=== PATIENT | male | born 1950 | race Caucasian/White ===

== ENCOUNTER 2016-11-11 09:50 | Observation (INO) | payer BC ==
[~2016-11-11 09:50] MED LIST: CANA300T PO; CIPR750T10 PO; ETHA400T PO
[2016-11-11 09:52] VITALS: BP 163/70; PULSE 52; RESP 20; TEMP 97.5; O2SAT 95
[2016-11-11 10:15] VITALS: BP 181/71; PULSE 54; RESP 16; O2SAT 100; O2SAT 97
[2016-11-11] MEDS ORDERED: ASPIRIN 325 MG TAB PO ONE (10:15)
[2016-11-11] MEDS ORDERED: SODIUM CHLORIDE 0.9% FLUSH 5 ML FLUSH IVF PRN (10:15)
--- NOTE | 2016-11-11 10:20 | PD ---
HPI Chief Complaint: Chest Pain Time Seen by Provider: 09:59 Travel History International Travel<30 days: No (unknown) Contact w/Intl Traveler<30days: No (unknown) History of Present Illness HPI 66yo M with PMH of NIDDM presents to the ED with c/o left sided chest pain for an hour. States chest pain is sharp, constant, nonradiating. No alleviating or aggravating factors. Denies any fever, sob, nausea, vomiting, diaphoresis or hemoptysis. Pt has been coughing more lately. Pt states he had this chest pain intermittently for 3 months and went to PMD but has not gotten referral for cardiology or had any cardiology work up for this chest pain. Pt also with cholelithiasis and intermittent RUQ abdominal pain. States this episode started when he woke up this morning. PFSH Past Medical History Cancer: No Cardiovascular Problems: No Chest Pain: No Diabetes: Yes Patient Takes Glucophage: No Diminished Hearing: No Endocrine: Yes Gastrointestinal Disorders: Yes (GALLSTONES) Genitourinary: Yes Immune Disorder: No Musculoskeletal: No Neurologic: No Psychiatric: No Reproductive: No Respiratory: No Immunizations Current: Yes Pneumonia: Yes (10/01/11) Tetanus Vaccination: Unknown Influenza Vaccination: No Past Surgical History Abdominal Surgery: No Cardiac Surgery: No Ear Surgery: No Endocrine Surgery: No Eye Surgery: No Genitourinary Surgery: No Oral Surgery: No Pacemaker: No Thoracic Surgery: No Social History Alcohol Use: No Tobacco Use: No Substance Use: No Allergies-Medications (Allergen,Severity, Reaction): Coded Allergies: *MDRO Multi-Drug Resistant Organism (Verified Allergy, Unknown, 02/28/14) MRSA Urine, blood, and wound 11/2012 Reported Meds & Prescriptions Reported Meds & Active Scripts Active Review of Systems Except as stated in HPI: all other systems reviewed are Neg Physical Exam Narrative GENERAL: 66yo M not in distress. SKIN: Warm and dry. HEAD: Atraumatic. Normocephalic. ENT: No nasal bleeding or discharge. Mucous membranes pink and moist. NECK: Trachea midline. No JVD. CARDIOVASCULAR: Sinus bradycardia on monitor at 50bpm. No murmur appreciated. RESPIRATORY: No accessory muscle use. Clear to auscultation. Breath sounds equal bilaterally. GASTROINTESTINAL: Abdomen soft, +TTP Epigastric and RLQ > RUQ. No rebound tenderness or guarding. BACK: No CVA tenderness bilaterally. MUSCULOSKELETAL: No obvious deformities. No clubbing. No cyanosis. No edema. No calf tenderness. NEUROLOGICAL: Awake and alert. No obvious cranial nerve deficits. Motor grossly within normal limits. Normal speech. PSYCHIATRIC: Appropriate mood and affect; insight and judgment normal. Data Data Last Documented VS Vital Signs Date Time Temp Pulse Resp B/P Pulse Ox O2 Delivery O2 Flow Rate FiO2 11/11/16 10:15 16 97 Room Air 11/11/16 10:15 54 181/71 2 11/11/16 09:52 97.5 Orders Electrocardiogram (11/11/16 ) Ckmb (Isoenzyme) Profile (11/11/16 10:13) Complete Blood Count With Diff (11/11/16 10:13) Comprehensive Metabolic Panel (11/11/16 10:13) Magnesium (Mg) (11/11/16 10:13) Prothrombin Time / Inr (Pt) (11/11/16 10:13) Act Partial Throm Time (Ptt) (11/11/16 10:13) Troponin I (11/11/16 10:13) Lipase (11/11/16 10:13) Chest, Single Ap (11/11/16 10:13) Ecg Monitoring (11/11/16 10:13) Bilateral Bp Monitoring (11/11/16 10:13) Iv Access Insert/Monitor (11/11/16 10:13) Oximetry (11/11/16 10:13) Aspirin (Aspirin) (11/11/16 10:15) Sodium Chloride 0.9% Flush (Ns Flush) (11/11/16 10:15) Ct Abd/Pel W Iv Contrast(Rout) (11/11/16 ) Urinalysis - C+S If Indicated (11/11/16 10:20) CKMB (11/11/16 10:15) CKMB% (11/11/16 10:15) Admit Order (Ed Use Only) (11/11/16 12:35) Labs Laboratory Tests Test 11/11/16 11/11/16 10:15 11:05 White Blood Count 4.6 TH/MM3 Red Blood Count 4.28 MIL/MM3 Hemoglobin 13.6 GM/DL Hematocrit 38.9 % Mean Corpuscular Volume 90.8 FL Mean Corpuscular Hemoglobin 31.7 PG Mean Corpuscular Hemoglobin 34.9 % Concent Red Cell Distribution Width 13.1 % Platelet Count 165 TH/MM3 Mean Platelet Volume 8.4 FL Neutrophils (%) (Auto) 49.8 % Lymphocytes (%) (Auto) 35.4 % Monocytes (%) (Auto) 10.7 % Eosinophils (%) (Auto) 3.6 % Basophils (%) (Auto) 0.5 % Neutrophils # (Auto) 2.3 TH/MM3 Lymphocytes # (Auto) 1.6 TH/MM3 Monocytes # (Auto) 0.5 TH/MM3 Eosinophils # (Auto) 0.2 TH/MM3 Basophils # (Auto) 0.0 TH/MM3 CBC Comment DIFF FINAL Differential Comment Prothrombin Time 10.8 SEC Prothromb Time International 1.0 RATIO Ratio Activated Partial 28.0 SEC Thromboplast Time Sodium Level 139 MEQ/L Potassium Level 4.0 MEQ/L Chloride Level 104 MEQ/L Carbon Dioxide Level 26.8 MEQ/L Anion Gap 8 MEQ/L Blood Urea Nitrogen 19 MG/DL Creatinine 1.01 MG/DL Estimat Glomerular Filtration 73 ML/MIN Rate Random Glucose 128 MG/DL Calcium Level 8.6 MG/DL Magnesium Level 2.2 MG/DL Total Bilirubin 0.5 MG/DL Aspartate Amino Transf 33 U/L (AST/SGOT) Alanine Aminotransferase 42 U/L (ALT/SGPT) Alkaline Phosphatase 129 U/L Total Creatine Kinase 361 U/L Creatine Kinase MB 11.5 NG/ML Creatine Kinase MB % 3.2 % Troponin I LESS THAN 0.02 NG/ML Total Protein 8.1 GM/DL Albumin 3.9 GM/DL Lipase 112 U/L Urine Color YELLOW Urine Turbidity CLEAR Urine pH 7.5 Urine Specific [place] 1.015 Urine Protein NEG mg/dL Urine Glucose (UA) NEG mg/dL Urine Ketones NEG mg/dL Urine Occult Blood NEG Urine Nitrite NEG Urine Bilirubin NEG Urine Urobilinogen LESS THAN 2.0 MG/DL Urine Leukocyte Esterase NEG Urine RBC 1 /hpf Urine WBC LESS THAN 1 /hpf Microscopic Urinalysis Comment CULT NOT INDICATED MDM Medical Decision Making Medical Screen Exam Complete: Yes Emergency Medical Condition: Yes Interpretation(s) EKG: Sinus bradycardia at 49bpm. Normal axis. Laboratory Tests Test 11/11/16 11/11/16 10:15 11:05 White Blood Count 4.6 TH/MM3 (4.0-11.0) Red Blood Count 4.28 MIL/MM3 (4.50-5.90) Hemoglobin 13.6 GM/DL (13.0-17.0) Hematocrit 38.9 % (39.0-51.0) Mean Corpuscular Volume 90.8 FL (80.0-100.0) Mean Corpuscular Hemoglobin 31.7 PG (27.0-34.0) Mean Corpuscular Hemoglobin 34.9 % Concent (32.0-36.0) Red Cell Distribution Width 13.1 % (11.6-17.2) Platelet Count 165 TH/MM3 (150-450) Mean Platelet Volume 8.4 FL (7.0-11.0) Neutrophils (%) (Auto) 49.8 % (16.0-70.0) Lymphocytes (%) (Auto) 35.4 % (9.0-44.0) Monocytes (%) (Auto) 10.7 % (0.0-8.0) Eosinophils (%) (Auto) 3.6 % (0.0-4.0) Basophils (%) (Auto) 0.5 % (0.0-2.0) Neutrophils # (Auto) 2.3 TH/MM3 (1.8-7.7) Lymphocytes # (Auto) 1.6 TH/MM3 (1.0-4.8) Monocytes # (Auto) 0.5 TH/MM3 (0-0.9) Eosinophils # (Auto) 0.2 TH/MM3 (0-0.4) Basophils # (Auto) 0.0 TH/MM3 (0-0.2) CBC Comment DIFF FINAL Differential Comment Prothrombin Time 10.8 SEC (9.8-11.6) Prothromb Time International 1.0 RATIO Ratio Activated Partial 28.0 SEC Thromboplast Time (24.3-30.1) Sodium Level 139 MEQ/L (136-145) Potassium Level 4.0 MEQ/L (3.5-5.1) Chloride Level 104 MEQ/L (98-107) Carbon Dioxide Level 26.8 MEQ/L (21.0-32.0) Anion Gap 8 MEQ/L (5-15) Blood Urea Nitrogen 19 MG/DL (7-18) Creatinine 1.01 MG/DL (0.60-1.30) Estimat Glomerular Filtration 73 ML/MIN (>89) Rate Random Glucose 128 MG/DL (74-106) Calcium Level 8.6 MG/DL (8.5-10.1) Magnesium Level 2.2 MG/DL (1.5-2.5) Total Bilirubin 0.5 MG/DL (0.2-1.0) Aspartate Amino Transf 33 U/L (15-37) (AST/SGOT) Alanine Aminotransferase 42 U/L (12-78) (ALT/SGPT) Alkaline Phosphatase 129 U/L (45-117) Total Creatine Kinase 361 U/L (39-308) Creatine Kinase MB 11.5 NG/ML (0.5-3.6) Creatine Kinase MB % 3.2 % (0.0-4.0) Troponin I LESS THAN 0.02 NG/ML (0.02-0.05) Total Protein 8.1 GM/DL (6.4-8.2) Albumin 3.9 GM/DL (3.4-5.0) Lipase 112 U/L (73-393) Urine Color YELLOW (YELLW/STRAW) Urine Turbidity CLEAR (CLEAR) Urine pH 7.5 (5.0-8.5) Urine Specific [place] 1.015 (1.002-1.035) Urine Protein NEG mg/dL (NEG-TRACE) Urine Glucose (UA) NEG mg/dL (NEG) Urine Ketones NEG mg/dL (NEG) Urine Occult Blood NEG (NEG) Urine Nitrite NEG (NEG) Urine Bilirubin NEG (NEG) Urine Urobilinogen LESS THAN 2.0 MG/DL (LESS THAN 2.0) Urine Leukocyte Esterase NEG (NEG) Urine RBC 1 /hpf (0-3) Urine WBC LESS THAN 1 /hpf (0-5) Microscopic Urinalysis Comment CULT NOT INDICATED Last Impressions Chest X-Ray 11/11/16 1013 Signed Impressions: Service Date/Time: Friday, November 11, 2016 10:21 - CONCLUSION: No acute disease. Dionicio Farr MD Abdomen/Pelvis CT 11/11/16 0000 Signed Impressions: Service Date/Time: Friday, November 11, 2016 12:33 - CONCLUSION: 1. No acute inflammatory process. 2. Questionable gallstones. Dionicio Farr MD Differential Diagnosis Atypical chest pain vs. Pneumonia vs. ACS Acute cholecystitis vs. acute appendicitis vs. acute pancreatitis vs. colitis vs. UTI Narrative Course 66yo M with DM here with atypical presenting chest pain. Pt has been having intermittent episodes of chest pain and has not had any cardiology follow up for this chest pain. Pt is a former cigarette smoker. Our records showed that pt had AIDEN in 2012 that was normal. Pt given aspirin 325mg PO. Labs reviewed, no leukocytosis. Troponin negative. Lipase normal. Alk phos mildly elevated. Normal liver enzyme and bilirubin. UA negative. CXR negative. CTa/p showed no acute inflammatory process. Questionable gallstones. Pt to be admitted for serial EKG and cardiac enzyme in chest pain center. Diagnosis Primary Impression: CHEST PAIN, UNSPECIFIED Admitting Information Admitting Physician Requests: Marybeth Green DO Nov 11, 2016 10:20
[2016-11-11 10:40] LABS: AUTOMATED NEUTROPHIL # 2.3 TH/MM3 (1.8-7.7); BASOPHIL % 0.5 % (0.0-2.0); EOSINOPHIL # 0.2 TH/MM3 (0-0.4); EOSINOPHIL % 3.6 % (0.0-4.0); HEMATOCRIT 38.9 % (39.0-51.0); HEMO FLAGS DIFF FINAL; LYMPH % 35.4 % (9.0-44.0); LYMPHOCYTE # 1.6 TH/MM3 (1.0-4.8); MEAN CELL VOLUME 90.8 FL (80.0-100.0); MEAN CORPUSCULAR HEMOGLOBIN 31.7 PG (27.0-34.0); MEAN CORPUSCULAR HGB CONC 34.9 % (32.0-36.0); MONO % 10.7 % (0.0-8.0); NEUT % 49.8 % (16.0-70.0); PLATELET COUNT 165 TH/MM3 (150-450); RED BLOOD COUNT 4.28 MIL/MM3 (4.50-5.90); RED CELL DISTRIBUTION WIDTH 13.1 % (11.6-17.2); WHITE BLOOD COUNT 4.6 TH/MM3 (4.0-11.0)
--- NOTE | 2016-11-11 10:43 | RADRPT ---
EXAM DATE/TIME: 11/11/2016 10:21 [facility] COMPARISON: CHEST SINGLE AP, April 15, 2014, 0:11. INDICATIONS : Chest pain. MEDICAL HISTORY : None. SURGICAL HISTORY : None. ENCOUNTER: Initial ACUITY: 1 day PAIN SCORE: 7/10 LOCATION: Bilateral chest FINDINGS: A single view of the chest demonstrates the lungs to be symmetrically aerated without evidence of mas s, infiltrate or effusion. Bilateral calcified granulomas. The cardiomediastinal contours are unrema rkable. Osseous structures are intact. CONCLUSION: No acute disease. Dionicio Farr MD on November 11, 2016 at 10:41 Board Certified Radiologist. This report was verified electronically.
[2016-11-11 10:50] LABS: PROTHROMBIN TIME - PATIENT 10.8 SEC (9.8-11.6)
[2016-11-11 10:54] LABS: ANION GAP 8 MEQ/L (5-15); AST (GOT) 33 U/L (15-37); BICARBONATE 26.8 MEQ/L (21.0-32.0); BLOOD UREA NITROGEN 19 MG/DL (7-18); CHLORIDE 104 MEQ/L (98-107); GLOMERULAR FILTRATION RATE 73 ML/MIN (>89); MAGNESIUM 2.2 MG/DL (1.5-2.5); SODIUM (NA) 139 MEQ/L (136-145)
[2016-11-11 10:59] LABS: ALKALINE PHOSPHATASE 129 U/L (45-117); ALT (GPT) 42 U/L (12-78); CREATINE KINASE 361 U/L (39-308); TOTAL BILIRUBIN ADULT 0.5 MG/DL (0.2-1.0)
[2016-11-11 11:11] LABS: CKMB 11.5 NG/ML (0.5-3.6)
[2016-11-11 11:31] LABS: BLOOD, URINE NEG (NEG); GLUCOSE,URINE NEG (NEG); KETONE, URINE NEG (NEG); NITRITE,URINE NEG (NEG); PH, URINE 7.5 (5.0-8.5); URINE COLOR YELLOW (YELLW/STRAW)
[2016-11-11 11:32] LABS: COMMENT (UR) CULT NOT INDICATED; CULTURE IF INDICATED CULT NOT INDICATED
[2016-11-11] MEDS ORDERED: ONDANSETRON HCL 4 MG/2 ML VIAL IV PRN (13:00)
[2016-11-11] MEDS ORDERED: NITROGLYCERIN 0.4 MG SL 25 TABS/BTL SL PRN (13:00)
[2016-11-11] MEDS ORDERED: ACETAMINOPHEN 500 MG CPLT PO PRN (13:00)
[2016-11-11] MEDS ORDERED: IOHEXOL 350 MG/ML 10 ML VIAL (for RAD DIAG) IV ONE (13:16)
--- NOTE | 2016-11-11 13:24 | RADRPT ---
EXAM DATE/TIME: 11/11/2016 12:33 [facility] COMPARISON: CT ABDOMEN & PELVIS W/O CONTRAST, December 01, 2012, 23:09. INDICATIONS : Abdomen pain. IV CONTRAST: 100 cc Omnipaque 350 (iohexol) IV ORAL CONTRAST: No oral contrast ingested. RADIATION DOSE: 9.96 CTDIvol (mGy) MEDICAL HISTORY : TB. SURGICAL HISTORY : None. ENCOUNTER: Initial ACUITY: 1 day PAIN SCALE: 5/10 LOCATION: Right upper quadrant TECHNIQUE: Volumetric scanning of the abdomen and pelvis was performed. Using automated exposure control and ad justment of the mA and/or kV according to patient size, radiation dose was kept as low as reasonably achievable to obtain optimal diagnostic quality images. FINDINGS: LOWER LUNGS: The visualized lower lungs are clear. LIVER: Homogeneous density without lesion. There is no dilation of the biliary tree. Questionable gallstone s. SPLEEN: Normal size without lesion. PANCREAS: Within normal limits. KIDNEYS: Normal in size and shape. There is no mass, stone or hydronephrosis. ADRENAL GLANDS: Within normal limits. VASCULAR: There is no aortic aneurysm. BOWEL/MESENTERY: The stomach, small bowel, and colon demonstrate no acute abnormality. There is no free intraperitone al air or fluid. ABDOMINAL WALL: Within normal limits. RETROPERITONEUM: There is no lymphadenopathy. BLADDER: No wall thickening or mass. REPRODUCTIVE: Within normal limits. INGUINAL: There is no lymphadenopathy or hernia. MUSCULOSKELETAL: Within normal limits for patient age. CONCLUSION: 1. No acute inflammatory process. 2. Questionable gallstones. Dionicio Farr MD on November 11, 2016 at 13:21 Board Certified Radiologist. This report was verified electronically.
--- NOTE | 2016-11-11 14:58 | HHI.DCPOC ---
Discharge Care Plan Diagnosis: (1) Musculoskeletal chest pain Goals to Promote Your Health * To prevent worsening of your condition and complications * To maintain your health at the optimal level Directions to Meet Your Goals Take your medications as prescribed Follow your dietary instruction Follow activity as directed Keep your appointments as scheduled Take your immunizations and boosters as scheduled If your symptoms worsen call your PCP, if no PCP go to Urgent Care Center or Emergency Room Smoking is Dangerous to Your Health. Avoid second hand smoke Call the 24-hour hour crisis hotline for domestic abuse at Luly Thibodeaux Nov 11, 2016 14:58
--- NOTE | 2016-11-11 15:01 | TR ---
Date Performed: 11/11/2016 Time Performed: 14:29:26 DOCTOR: Gianfranco Eller DRUG LIST: CLINICAL HISTORY: REASON FOR TEST: Chest pain REASON FOR ENDING: OBSERVATION: CONCLUSION: Chas protocol completed. Stopped sec to reaching target heart rate and leg fatigue. Maximum QO=803 Target HR Achieved=86.0% Total Exercise Time=9:01 Maximum CY=251/52. No reprod chest discomfort. No ectopy. No st t segment changes to sugg ischemia. Normal bp response. Recovery quick and unremarkable. COMMENTS: Conclusion: Normal treadmill exercise. No evidence of ischemia.
--- NOTE | 2016-11-11 15:58 | HHI.HP ---
[facility] Primary Care Physician Sander Mas MD Chief Complaint Chest pain and abdominal pain History of Present Illness 66-year-old male with known diabetes presents to the emergency room for further evaluation of intermittent chest pain. He has seen his primary care provider in regards to sharp chest pain in his left anterior chest that is accompanied by tightness. Precipitating factors of activity such as shoveling. He works for a local [employer] company. His primary care provider has not given him with a referral for cardiology workup, therefore he came for further evaluation. No associated symptoms. No relieving factors. Pain is not made worse with taking deep breaths, or movement. He also experiences nonexertional chest pain described as a "pinching feeling." In regards to his abdominal discomfort, he has seen a GI specialist recently and was told he did not require surgery/ intervention for his gallbladder. He continues to have GI discomfort. States 2 days ago he increased diabetic medication as directed by his primary care M.D. He is on sure the name of the medication. Review of Systems General: No fatigue,weakness or recent illness change in appetite HEENT: no nasal congestion or drainage, no dysphasia CV: CP as stated above, denies pressure, palpitations, intermittent leg pain, or dizziness RESP: No SOB, cough, wheeze. 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 Follows on a yearly basis with a sputum culture with M.D. GI: Has been told he has gallbladder stones however does not require surgery or intervention. Noticed an increase in generalized GI discomfort after increasing his diabetic medication. No nausea or vomiting, bowel changes, diarrhea, constipation, distention. Reports good appetite. : No dysuria EXT: No lower leg edema, no parathesias MS: No discomfort or change in ROM NEURO: No change in memory, dizziness, difficulty with balance, LOC, motor/ sensory deficits PSYCH: No anxiety, depression Past Family Social History Allergies: Coded Allergies: *MDRO Multi-Drug Resistant Organism (Verified Allergy, Unknown, 02/28/14) MRSA Urine, blood, and wound 11/2012 Past Medical History Diabetes Cholelithiasis Tuberculosis in 2013, cured with meds Past Surgical History Right shoulder "bone scraping to remove MRSA" Reported Medications Diabetic medicationname unknown. Recently increased to 2 tablets daily versus 1 tablet daily. No other routine vitamins,prescription medications, or [id number] medications. Active Ordered Medications Current Medications Medications (Trade) Dose Ordered Sig/Matheus Route Start Time Stop Time Status Last Admin (Tylenol) 500 mg Q4H PRN PO 11/11/16 13:00 (Zofran Inj) 4 mg Q6H PRN IV 11/11/16 13:00 (Nitrostat Sl) 0.4 mg Q5M PRN SL 11/11/16 13:00 (Aspirin) 325 mg DAILY PO 11/12/16 09:00 Family History Noncontributory for any early onset cardiovascular disease. Father lived until age 80, mother lived until age 85. Social History He is , active, and works at a [employer]. He is a lifelong nonsmoker, denies any alcohol, or illegal drug use. No known hypertension or hyperlipidemia. Reports diabetes, takes oral anti- glycemic medication. Physical Exam Vital Signs Vital Signs Date Time Temp Pulse Resp B/P Pulse Ox O2 Delivery O2 Flow Rate FiO2 11/11/16 10:15 16 97 Room Air 11/11/16 10:15 54 16 181/71 100 Nasal Cannula 2 11/11/16 10:00 16 97 Nasal Cannula 2 11/11/16 09:52 97.5 52 20 163/70 95 Room Air Physical Exam GENERAL: Alert WN, WD, NAD, pleasant male. HEAD: NC, AT EYES: Sclera clear, conjunctiva without injection ENT: Mucous membranes pink and moist NECK: Supple, no masses, trachea midline CV: RRR, without murmur, rub, gallop, no JVD, S1-S2 no S3-S4. No carotid or femoral bruits RESP: Clear lungs throughout bilateral, no crackles, wheeze, rhonchi, symmetrical chest rise, nonlabored, able to speak in full sentences ABD: Soft, NT, ND, no masses, positive bowel tones. Negative Bui's sign. EXT: Pulses +24, no dependent edema MS: Normal tone 4 extremities, nontender, no obvious deformities, full range of motion NEURO: CN II through CN XII grossly intact, motor strength 5/5, gait WNL PSYCH: A+O 3, pleasant affect, appropriate speech, appropriate mood and affect , insight and judgment SKIN: Normal turgor, normal texture, no lesions, no rashes, brisk cap refill Laboratory Laboratory Tests Test 11/11/16 11/11/16 10:15 11:05 White Blood Count 4.6 Red Blood Count 4.28 Hemoglobin 13.6 Hematocrit 38.9 Mean Corpuscular Volume 90.8 Mean Corpuscular Hemoglobin 31.7 Mean Corpuscular Hemoglobin 34.9 Concent Red Cell Distribution Width 13.1 Platelet Count 165 Mean Platelet Volume 8.4 Neutrophils (%) (Auto) 49.8 Lymphocytes (%) (Auto) 35.4 Monocytes (%) (Auto) 10.7 Eosinophils (%) (Auto) 3.6 Basophils (%) (Auto) 0.5 Neutrophils # (Auto) 2.3 Lymphocytes # (Auto) 1.6 Monocytes # (Auto) 0.5 Eosinophils # (Auto) 0.2 Basophils # (Auto) 0.0 CBC Comment DIFF FINAL Differential Comment Prothrombin Time 10.8 Prothromb Time International 1.0 Ratio Activated Partial 28.0 Thromboplast Time Sodium Level 139 Potassium Level 4.0 Chloride Level 104 Carbon Dioxide Level 26.8 Anion Gap 8 Blood Urea Nitrogen 19 Creatinine 1.01 Estimat Glomerular Filtration 73 Rate Random Glucose 128 Calcium Level 8.6 Magnesium Level 2.2 Total Bilirubin 0.5 Aspartate Amino Transf 33 (AST/SGOT) Alanine Aminotransferase 42 (ALT/SGPT) Alkaline Phosphatase 129 Total Creatine Kinase 361 Creatine Kinase MB 11.5 Creatine Kinase MB % 3.2 Troponin I LESS THAN 0.02 Total Protein 8.1 Albumin 3.9 Lipase 112 Urine Color YELLOW Urine Turbidity CLEAR Urine pH 7.5 Urine Specific [place] 1.015 Urine Protein NEG Urine Glucose (UA) NEG Urine Ketones NEG Urine Occult Blood NEG Urine Nitrite NEG Urine Bilirubin NEG Urine Urobilinogen LESS THAN 2.0 Urine Leukocyte Esterase NEG Urine RBC 1 Urine WBC LESS THAN 1 Microscopic Urinalysis Comment CULT NOT INDICATED Result Diagram: 11/11/16 1015 11/11/16 1015 Imaging Last Impressions Chest X-Ray 11/11/16 1013 Signed Impressions: Service Date/Time: Friday, November 11, 2016 10:21 - CONCLUSION: No acute disease. Dionicio Farr MD Abdomen/Pelvis CT 11/11/16 0000 Signed Impressions: Service Date/Time: Friday, November 11, 2016 12:33 - CONCLUSION: 1. No acute inflammatory process. 2. Questionable gallstones. Dionicio Farr MD Course EKG Normal sinus bradycardia, no ST changes. Assessment and Plan Assessment and Plan #1 Chest painthe patient admitted to the chest pain center and evaluated by Dr. Gianfranco Eller. EKGs and cardiac enzymes unremarkable. Patient underwent an exercise stress test. Exercise stress test was unremarkable without signs to suggest ischemia. He will be discharged this afternoon without any restrictions to activity. #2 Musculoskeletal pain chest pain is atypical cardiac pain and most likely due to musculoskeletal pain. This is been discussed in length with patient and daughter. Encouraged taking [id number] Tylenol or Aleve as needed for pain. May use a warm heating pad to chest wall. He is agreeable to this plan of care , with no further questions. #3 CholelithiasisCT of his abdomen negative for an acute process. Discussed with patient and have encouraged patient to follow with his GI physician. #4 Diabetes- continue taking anti-glycemic medications and notify primary care provider of GI discomfort since increasing his anti-glycemic medications. Discussed Condition With Patient's daughter remained at bedside throughout exam as well as stress test for translation. Patient only speaks Yi. Luly Thibodeaux Nov 11, 2016 15:58
[2016-11-11] MEDS ORDERED: SODIUM CHLORIDE 0.9% FLUSH 5 ML FLUSH IVF SCH (21:00)
[2016-11-12] MEDS ORDERED: ASPIRIN 325 MG TAB PO SCH (09:00)
--- NOTE | 2016-11-12 14:33 | EKG ---
Date Performed: 11/11/2016 Time Performed: 10:08:14 PTAGE: 66 years EKG: SINUS BRADYCARDIA Likely Sinus rhythm but there is a fair amount of baseline artifact. Recommend repeat EKG to exclude atrial fibrillation . Compared to previous tracing, heart rate is slower BORDERLINE ECG PREVIOUS TRACING : 02/28/2014 20.35 DOCTOR: Rosendo Rocha Interpretating Date/Time 11/12/2016 14:32:13
== END 2016-11-11 15:35 | disposition home or self-care (01) ==
LOC: NEPA 09:50 → NEDA 12:37
DX: R07.89 Other chest pain (principal); M79.1 Myalgia; K80.20 Calculus of gallbladder without cholecystitis without obstruction; R94.31 Abnormal electrocardiogram [ECG] [EKG]; E11.9 Type 2 diabetes mellitus without complications; Z87.891 Personal history of nicotine dependence; Z86.11 Personal history of tuberculosis
CPT/HCPCS: 71010; 74177; 80053; 81001; 82550; 82552; 83690; 83735; 84484; 85025; 85610; 85730; 93005; 93017; 99285; G0378; Q9967

== ENCOUNTER 2018-02-09 21:28 | Emergency (ER) | payer BC ==
[~2018-02-09] VITALS: Ht 152.4 cm; Wt 75.0 kg
[2018-02-09 22:02] VITALS: BP 159/67; PULSE 76; RESP 18; TEMP 97.8; O2SAT 96
[2018-02-09] MEDS ORDERED: SODIUM CHLORIDE 0.9% FLUSH 10 ML FLUSH IVF PRN (22:45)
[2018-02-09] MEDS ORDERED: methylPREDNISolone SOD SUCC 125 MG/2 ML VIAL IV PUSH ONE (22:45)
[2018-02-09] MEDS ORDERED: guaiFENesin/CODEINE SYRUP 200 MG/20 MG/10 ML CUP PO PRN (22:45)
[2018-02-09] MEDS ORDERED: RESP: ALBUTEROL 2.5 MG/3 ML NEB (SCH) INH ONE (22:45)
[2018-02-09 22:50] VITALS: RESP 18; O2SAT 96
--- NOTE | 2018-02-09 22:53 | PD ---
HPI Chief Complaint: Cold / Flu Symptoms Time Seen by Provider: 22:32 Travel History International Travel<30 days: No Contact w/Intl Traveler<30days: No Traveled to known affect area: No History of Present Illness HPI The patient 67 years old. He arrives with complaint of muscle aches and pains. He also reports coughing. When the patient does cough he has pain in the region of the left chest and throughout the back and right abdomen. Symptoms have been present for 1 week. He also reports body aches and pains also diffuse. Negative fever. Coughing and produces clear phlegm. Multiple sick contacts including the granddaughter are noted. No international travel. No hemoptysis. PFSH Past Medical History Cancer: No Cardiovascular Problems: No Chest Pain: No Diabetes: Yes Patient Takes Glucophage: No Diminished Hearing: No Endocrine: Yes Gastrointestinal Disorders: Yes (GALLSTONES) Genitourinary: Yes Immune Disorder: No Musculoskeletal: No Neurologic: No Psychiatric: No Reproductive: No Respiratory: No Immunizations Current: Yes Pneumonia: Yes (10/01/11) Tetanus Vaccination: Unknown Influenza Vaccination: No Past Surgical History Abdominal Surgery: No Cardiac Surgery: No Ear Surgery: No Endocrine Surgery: No Eye Surgery: No Genitourinary Surgery: No Oral Surgery: No Pacemaker: No Thoracic Surgery: No Social History Alcohol Use: No Tobacco Use: No Substance Use: No Allergies-Medications (Allergen,Severity, Reaction): Coded Allergies: *MDRO Multi-Drug Resistant Organism (Verified Allergy, Unknown, 02/09/18) MRSA Urine, blood, and wound 11/2012 Reported Meds & Prescriptions Reported Meds & Active Scripts Active No Active Prescriptions or Reported Medications Review of Systems Except as stated in HPI: all other systems reviewed are Neg General / Constitutional: No: Fever Physical Exam Narrative GENERAL: 67-year-old male pleasant well-nourished well-developed no acute distress Vital Signs Date Time Temp Pulse Resp B/P (MAP) Pulse Ox O2 Delivery O2 Flow Rate FiO2 02/09/18 23:46 78 18 135/63 (87) 96 Room Air 02/09/18 22:50 96 Room Air 02/09/18 22:50 18 96 Room Air 02/09/18 22:02 97.8 76 18 159/67 (97) 96 SKIN: Warm and dry. HEAD: Atraumatic. Normocephalic. EYES: Pupils equal and round. No scleral icterus. No injection or drainage. ENT: No nasal bleeding or discharge. Mucous membranes pink and moist. NECK: Trachea midline. No JVD. CARDIOVASCULAR: Regular rate and rhythm. RESPIRATORY: Minimal wheezing bilaterally. No tachypnea. Speaking full sentences. GASTROINTESTINAL: Abdomen soft, non-tender, nondistended. Hepatic and splenic margins not palpable. MUSCULOSKELETAL: Extremities without clubbing, cyanosis, or edema. No obvious deformities. generalized nonspecific very mild muscular tenderness. NEUROLOGICAL: Awake and alert. No obvious cranial nerve deficits. Motor grossly within normal limits. Five out of 5 muscle strength in the arms and legs. Normal speech. PSYCHIATRIC: Appropriate mood and affect; insight and judgment normal. Data Data Last Documented VS Vital Signs Date Time Temp Pulse Resp B/P (MAP) Pulse Ox O2 Delivery O2 Flow Rate FiO2 02/09/18 23:46 78 18 135/63 (87) 96 Room Air 02/09/18 22:02 97.8 Orders Orders Basic Metabolic Panel (Bmp) (02/09/18 22:32) Complete Blood Count With Diff (02/09/18 22:32) Chest, Pa & Lat (02/09/18 22:32) Ecg Monitoring (02/09/18 22:32) Iv Access Insert/Monitor (02/09/18 22:32) Oximetry (02/09/18 22:32) Oxygen Administration (02/09/18 22:32) Sodium Chloride 0.9% Flush (Ns Flush) (02/09/18 22:45) Albuterol Neb (Albuterol Neb) (02/09/18 22:45) Guaifen-Cod 200-20 Mg/10ml Liq (Robituss (02/09/18 22:45) Methylprednisolone So Succ Inj (Solumedr (02/09/18 22:45) Ed Discharge Order (02/10/18 00:13) Azithromycin (Zithromax) (02/10/18 00:15) Labs Laboratory Tests Test 02/09/18 22:47 White Blood Count 7.3 TH/MM3 Red Blood Count 4.27 MIL/MM3 Hemoglobin 13.7 GM/DL Hematocrit 38.8 % Mean Corpuscular Volume 90.8 FL Mean Corpuscular Hemoglobin 32.1 PG Mean Corpuscular Hemoglobin Concent 35.3 % Red Cell Distribution Width 13.8 % Platelet Count 179 TH/MM3 Mean Platelet Volume 8.4 FL Neutrophils (%) (Auto) 54.3 % Lymphocytes (%) (Auto) 27.7 % Monocytes (%) (Auto) 15.4 % Eosinophils (%) (Auto) 2.0 % Basophils (%) (Auto) 0.6 % Neutrophils # (Auto) 3.9 TH/MM3 Lymphocytes # (Auto) 2.0 TH/MM3 Monocytes # (Auto) 1.1 TH/MM3 Eosinophils # (Auto) 0.1 TH/MM3 Basophils # (Auto) 0.0 TH/MM3 CBC Comment DIFF FINAL Differential Comment Blood Urea Nitrogen 19 MG/DL Creatinine 1.31 MG/DL Random Glucose 231 MG/DL Calcium Level 9.1 MG/DL Sodium Level 134 MEQ/L Potassium Level 3.8 MEQ/L Chloride Level 98 MEQ/L Carbon Dioxide Level 26.2 MEQ/L Anion Gap 10 MEQ/L Estimat Glomerular Filtration Rate 54 ML/MIN MDM Medical Decision Making Medical Screen Exam Complete: Yes Emergency Medical Condition: Yes Medical Record Reviewed: Yes Differential Diagnosis Pneumonia, nonspecific URI, renal failure, anemia Narrative Course CBC & BMP Diagram 02/09/18 22:47 Calcium Level 9.1 Last Impressions Chest X-Ray 02/09/182 Signed Impressions: Service Date/Time: Sunday, February 09, 2018 22:52 - CONCLUSION: 1. Mild scarring with no evidence of pneumonia. 2. Multiple calcified granulomas again noted. Isaias Mcdermott MD Patient received breathing treatments here and IV steroids. We will send him home with azithromycin and inhaler and prednisone. His main issue is coughing and the discomfort related with it. He is also been seen here multiple times previously and has had pneumonia on more than one occasion requiring admission hence the workup today. He also underwent chest pain center evaluation with the past few months which was unremarkable. In this scenario discharge home with scripts as noted is considered most appropriate for the patient. Patient and granddaughter are quite agreeable w plan. Diagnosis Primary Impression: URI (upper respiratory infection) Qualified Codes: J06.9 - Acute upper respiratory infection, unspecified Referrals: Primary Care Physician call for appointment Med/Other Pt SpecificInfo: Prescription(s) given Scripts Albuterol 6.7 GM Inh (Proventil Hfa 6.7 GM Inh) 90 Mcg/Act Aer 2 PUFF INH Q6H Y for SHORTNESS OF BREATH, #1 INHALER 0 Refills Prov: Ede Gr MD 02/10/18 Prednisone (Prednisone) 20 Mg Tab 40 MG PO DAILY for 4 Days, #8 TAB 0 Refills Take 40 mg (2 tablets) daily for 5 days Prov: Ede Gr MD 02/10/18 Azithromycin (Azithromycin) 250 Mg Tab 250 MG PO DAILY for Infection for 4 Days, #4 TAB 0 Refills Prov: Ede Gr MD 02/10/18 Disposition: 01 DISCHARGE HOME Condition: Stable Ede Gr MD February 09, 2018 22:53
--- NOTE | 2018-02-09 23:12 | RADRPT ---
EXAM DATE/TIME: 02/09/2018 22:52 [facility] COMPARISON: CHEST SINGLE AP, November 11, 2016, 10:21. INDICATIONS : Chest and back pain with shortness of breath. Cold/flu symptoms. MEDICAL HISTORY : Pneumonia. TB. UTI. Gallstones. Diabetes. SURGICAL HISTORY : None. ENCOUNTER: Initial ACUITY: 1 week PAIN SCORE: 10/10 LOCATION: Bilateral chest FINDINGS: PA and lateral views of the chest demonstrate the lungs to be symmetrically aerated without evidence of mass, infiltrate or effusion. There is mild scarring. Mild atherosclerotic changes are present in the aorta. The cardiomediastinal contours are unremarkable. There are multiple calcified granulomas again noted bilaterally. Osseous structures are intact. CONCLUSION: 1. Mild scarring with no evidence of pneumonia. 2. Multiple calcified granulomas again noted. Isaias Mcdermott MD on February 09, 2018 at 23:08 Board Certified Radiologist. This report was verified electronically.
[2018-02-09 23:18] LABS: AUTOMATED NEUTROPHIL # 3.9 TH/MM3 (1.8-7.7); BASOPHIL % 0.6 % (0.0-2.0); EOSINOPHIL # 0.1 TH/MM3 (0-0.4); HEMATOCRIT 38.8 % (39.0-51.0); HEMOGLOBIN 13.7 GM/DL (13.0-17.0); LYMPH % 27.7 % (9.0-44.0); MEAN CELL VOLUME 90.8 FL (80.0-100.0); MEAN CORPUSCULAR HEMOGLOBIN 32.1 PG (27.0-34.0); MEAN CORPUSCULAR HGB CONC 35.3 % (32.0-36.0); MEAN PLATELET VOLUME 8.4 FL (7.0-11.0); MONO % 15.4 % (0.0-8.0); MONOCYTE # 1.1 TH/MM3 (0-0.9); NEUT % 54.3 % (16.0-70.0); PLATELET COUNT 179 TH/MM3 (150-450); RED BLOOD COUNT 4.27 MIL/MM3 (4.50-5.90); RED CELL DISTRIBUTION WIDTH 13.8 % (11.6-17.2); WHITE BLOOD COUNT 7.3 TH/MM3 (4.0-11.0)
[2018-02-09 23:36] LABS: BICARBONATE 26.2 MEQ/L (21.0-32.0); CALCIUM 9.1 MG/DL (8.5-10.1); CREATININE 1.31 MG/DL (0.60-1.30)
[2018-02-09 23:46] VITALS: BP 135/63; PULSE 78; RESP 18; O2SAT 96
[2018-02-10] MEDS ORDERED: AZITHROMYCIN 250 MG TAB PO ONE (00:15)
[2018-02-10] MEDS ORDERED: ALBU6.7H INH (00:17)
[2018-02-10] MEDS ORDERED: AZIT250T3 PO (00:17)
[2018-02-10] MEDS ORDERED: PRED20 PO (00:17)
== END 2018-02-10 00:36 | disposition home or self-care (01) ==
LOC: NEPE 21:28
DX: J06.9 Acute upper respiratory infection, unspecified (principal); E11.9 Type 2 diabetes mellitus without complications
CPT/HCPCS: 71046; 80048; 85025; 94664; 96374; 99284; J2930; J7613

== ENCOUNTER 2018-02-16 14:09 | Emergency (ER) | payer BC ==
[~2018-02-16] VITALS: Ht 152.4 cm; Wt 70.0 kg
[~2018-02-16 14:09] MED LIST changes: +ALBU6.7H INH; +AZIT250T3 PO; -CANA300T PO; -CIPR750T10 PO; -ETHA400T PO; +PRED20 PO
[2018-02-16 14:12] VITALS: BP 159/69; PULSE 66; RESP 16; TEMP 98.2; O2SAT 98
[2018-02-16] MEDS: RESP: ALBUTEROL 2.5 MG/IPRATROPIUM 0.5 MG NEB (SCH) INH (15:24)
--- NOTE | 2018-02-16 15:30 | PD ---
HPI Chief Complaint: Cold / Flu Symptoms Time Seen by Provider: 15:01 Travel History International Travel<30 days: No Contact w/Intl Traveler<30days: No Traveled to known affect area: No History of Present Illness HPI 67-year-old male presents to the emergency department accompanied by his daughter. He is Panamanian-speaking and requested his daughter interprets. Patient has been having a cough for the past couple weeks. He was evaluated here a week ago and treated with antibiotics, steroids, inhaler with continued cough. He then again followed up with his primary care provider on Sunday and was prescribed more prednisone. He still complaining of continued cough. Denies chest pain, shortness of breath, wheezing. Denies fevers. He is also complaining of left ear drainage. He is currently being treated with prescribed eardrops, which are not helping with his symptoms. Right ear pain is worse than the left. He is also complaining of increased urination and thirst for the past week. He has history of diabetes mellitus type 2 and stopped taking his oral hypoglycemics a few months ago, because they were out making him feel good. He did have blood work done the other day that was ordered by his primary care provider. No known aggravating or relieving factors. Symptoms are moderate in severity. Primary care provider is Dr. Santiago. No known allergies. History of diabetes mellitus type 2. Has no other medical complaints. No other modifying factors or associated signs and symptoms. PFSH Past Medical History Cancer: No Cardiovascular Problems: No Chest Pain: No Diabetes: Yes Diminished Hearing: No Endocrine: Yes Gastrointestinal Disorders: Yes (GALLSTONES) Genitourinary: Yes Immune Disorder: No Musculoskeletal: No Neurologic: No Psychiatric: No Reproductive: No Respiratory: No Immunizations Current: Yes Pneumonia: Yes (10/01/11) Past Surgical History Abdominal Surgery: No Cardiac Surgery: No Ear Surgery: No Endocrine Surgery: No Eye Surgery: No Genitourinary Surgery: No Oral Surgery: No Pacemaker: No Thoracic Surgery: No Social History Alcohol Use: No Tobacco Use: No Substance Use: No Allergies-Medications (Allergen,Severity, Reaction): Coded Allergies: *MDRO Multi-Drug Resistant Organism (Verified Allergy, Unknown, 02/09/18) MRSA Urine, blood, and wound 11/2012 Reported Meds & Prescriptions Reported Meds & Active Scripts Active Metformin (Metformin HCl) 500 Mg Tab 500 Mg PO BIDPC Augmentin (Amoxicillin-Clavulanate) 875-125 Mg Tab 1 Tab PO BID 10 Days Proventil Hfa 6.7 GM Inh (Albuterol Sulfate) 90 Mcg/Act Aer 2 Puff INH Q6H PRN Prednisone 20 Mg Tab 40 Mg PO DAILY 4 Days Take 40 mg (2 tablets) daily for 5 days Azithromycin 250 Mg Tab 250 Mg PO DAILY 4 Days Review of Systems Except as stated in HPI: all other systems reviewed are Neg Physical Exam Narrative GENERAL: Well-nourished, well-developed elderly, male patient, in no acute distress; afebrile, nontoxic-appearing SKIN: Warm and dry. HEAD: Atraumatic. Normocephalic. EYES: Pupils equal and round. No scleral icterus. No injection or drainage. ENT: Mucosa pink and moist. No erythema or exudates. No uvular edema. No uvular , palatal, or tonsillar deviation. Airway patent. Nares without nasal blood, purulent drainage or septal hematoma. EARS: Bilateral pinnae and external canals appear within normal limits. Left ear canal with yellowish drainage noted; I am unable to visualize the tympanic membrane; unable to determine TM perforation. Right tympanic membrane with erythema, dullness, and loss of landmark; without perforation. NECK: Trachea midline. No lymphadenopathy. CARDIOVASCULAR: Regular rate and rhythm. No murmur appreciated. RESPIRATORY: No accessory muscle use. Lungs with mild Wheezing in the right lower lobe to auscultation. No retractions or tachypnea. No Audible wheezing noted. GASTROINTESTINAL: Abdomen soft, non-tender, nondistended. Hepatic and splenic margins not palpable. Bowel sounds are active 4 quadrants. MUSCULOSKELETAL: No obvious deformities. No clubbing. No cyanosis. No edema. NEUROLOGICAL: Awake and alert. Oriented 3. No obvious cranial nerve deficits. Motor grossly within normal limits. Normal speech. Moves all extremities. 5/5 strength to all extremities. PSYCHIATRIC: Appropriate mood and affect; insight and judgment normal. Data Data Last Documented VS Vital Signs Date Time Temp Pulse Resp B/P (MAP) Pulse Ox O2 Delivery O2 Flow Rate FiO2 02/16/18 16:23 99 02/16/18 14:12 98.2 66 16 159/69 (99) Orders Orders Chest, Single Ap (02/16/18 15:15) Albuterol-Ipratropium Neb (Duoneb Neb) (02/16/18 15:15) Urinalysis - C+S If Indicated (02/16/18 15:17) Blood Glucose (02/16/18 15:17) Complete Blood Count With Diff (02/16/18 15:36) Comprehensive Metabolic Panel (02/16/18 15:36) Beta Hydroxybutyrate (Acetone) (02/16/18 15:36) Ecg Monitoring (02/16/18 15:36) Iv Access Insert/Monitor (02/16/18 15:36) Oximetry (02/16/18 15:36) NPO (02/16/18 15:36) Sodium Chloride 0.9% Flush (Ns Flush) (02/16/18 15:45) Blood Gas Venous (Vbg) (02/16/18 15:36) Sodium Chlor 0.9% 1000 Ml Inj (Ns 1000 M (02/16/18 15:45) Blood Glucose (02/16/18 17:19) Blood Glucose (02/16/18 17:24) Blood Glucose (02/16/18 18:24) Sodium Chlor 0.9% 1000 Ml Inj (Ns 1000 M (02/16/18 17:24) Sodium Chlor 0.9% 1000 Ml Inj (Ns 1000 M (02/16/18 17:54) Insulin Human Regular Inj (Novolin R Inj (02/16/18 17:30) Ed Discharge Order (02/16/18 18:44) Labs Laboratory Tests Test 02/16/18 15:27 02/16/18 15:45 Blood Gas Puncture Site IV Blood Gas Patient Temperature 98.6 Venous Blood pH 7.39 Venous Blood Partial Pressure CO2 41 mmHg Venous Blood Partial Pressure O2 33 mmHg Venous Blood HCO3 24 mmol/L Venous Blood Oxygen Saturation 56 % Venous Blood Oxygen Content 11.5 Vol % Venous Blood Base Excess 0.0 mmol/L Oxygen Delivery Device RA Blood Gas Inspired Oxygen 21 % White Blood Count 7.8 TH/MM3 Red Blood Count 4.49 MIL/MM3 Hemoglobin 14.4 GM/DL Hematocrit 42.6 % Mean Corpuscular Volume 95.0 FL Mean Corpuscular Hemoglobin 32.0 PG Mean Corpuscular Hemoglobin Concent 33.7 % Red Cell Distribution Width 13.6 % Platelet Count 207 TH/MM3 Mean Platelet Volume 8.2 FL Neutrophils (%) (Auto) 74.4 % Lymphocytes (%) (Auto) 16.9 % Monocytes (%) (Auto) 8.1 % Eosinophils (%) (Auto) 0.4 % Basophils (%) (Auto) 0.2 % Neutrophils # (Auto) 5.8 TH/MM3 Lymphocytes # (Auto) 1.3 TH/MM3 Monocytes # (Auto) 0.6 TH/MM3 Eosinophils # (Auto) 0.0 TH/MM3 Basophils # (Auto) 0.0 TH/MM3 CBC Comment DIFF FINAL Differential Comment Urine Color LIGHT-YELLOW Urine Turbidity CLEAR Urine pH 6.0 Urine Specific Geraldine 1.035 Urine Protein NEG mg/dL Urine Glucose (UA) 1000 mg/dL Urine Ketones 10 mg/dL Urine Occult Blood NEG Urine Nitrite NEG Urine Bilirubin NEG Urine Urobilinogen LESS THAN 2.0 MG/DL Urine Leukocyte Esterase NEG Urine WBC LESS THAN 1 /hpf Microscopic Urinalysis Comment CULT NOT INDICATED Blood Urea Nitrogen 32 MG/DL Creatinine 1.29 MG/DL Random Glucose 587 MG/DL Total Protein 7.6 GM/DL Albumin 3.1 GM/DL Calcium Level 8.5 MG/DL Alkaline Phosphatase 131 U/L Aspartate Amino Transf (AST/SGOT) 47 U/L Alanine Aminotransferase (ALT/SGPT) 110 U/L Total Bilirubin 0.7 MG/DL Sodium Level 133 MEQ/L Potassium Level 4.4 MEQ/L Chloride Level 98 MEQ/L Carbon Dioxide Level 25.6 MEQ/L Anion Gap 9 MEQ/L Estimat Glomerular Filtration Rate 55 ML/MIN B-Hydroxybutyrate 0.56 MMOL/L MDM Medical Decision Making Medical Screen Exam Complete: Yes Emergency Medical Condition: Yes Medical Record Reviewed: Yes Differential Diagnosis Otitis media, bronchitis, pneumonia, hyperglycemia Narrative Course 67-year-old male with right otitis media on physical exam. He also has some mild wheezing in his right lower lobe of his lung. He has had a cough for a few weeks and is being treated for bronchitis. His main complaint presenting to the ER was his cough. He has been using albuterol inhaler and taking prednisone. He denies chest pain shortness of breath. His daughter is at the bedside and she is concerned because he has had increased thirst and very frequent urination for the past week. He has history of diabetes mellitus and stopped taking his oral hypoglycemics a few months ago because they were making him feel well. Chest x-ray, Kendrick, BGM, urinalysis ordered. 1535: BGM 533. CBC, CMP, urinalysis, beta hydroxybutyrate, VBG, IV, normal saline bolus ordered. 1624: VBG with pH 7.39. CBC unremarkable. Chest x-ray no acute findings. 1725: Repeat BGM 514. Discussed blood sugar with Dr. Gr and continue plan of care discussed. Normal saline 2 L, 10 units of regular insulin IV, repeat blood sugars every 1 hour 2 ordered. 1800: Dr. Gr assumed patient care at this time. See his note for final patient disposition. Diagnosis Primary Impression: Bronchitis Additional Impressions: Right otitis media Qualified Codes: H66.91 - Otitis media, unspecified, right ear Hyperglycemia Med/Other Pt SpecificInfo: Prescription(s) given Scripts Metformin (Metformin) 500 Mg Tab 500 MG PO BIDPC for Blood Sugar Management, #60 TAB 0 Refills Prov: Ede Gr MD 02/16/18 Amoxicillin-Clavulanate (Augmentin) 875-125 Mg Tab 1 TAB PO BID for Infection for 10 Days, #20 TAB 0 Refills Prov: Nichol Sandoval 02/16/18 Nichol Sandoval February 16, 2018 15:30
--- NOTE | 2018-02-16 15:32 | RADRPT ---
EXAM DATE/TIME: 02/16/2018 15:17 [facility] COMPARISON: CHEST SINGLE AP, November 11, 2016, 10:21. INDICATIONS : Cough and congestion. MEDICAL HISTORY : Pneumonia. TB. UTI. Gallstones. Diabetes. SURGICAL HISTORY : None. ENCOUNTER: Initial ACUITY: 3 weeks PAIN SCORE: 9/10 LOCATION: Bilateral chest FINDINGS: Multiple calcified granulomas again noted bilaterally. No new focal pleural or parenchymal opacities. Cardiomediastinal contours are within normal limits. Bony thorax is intact. CONCLUSION: 1. No acute abnormality or significant interval change. Alexandro Vanegas MD on February 16, 2018 at 15:29 Board Certified Radiologist. This report was verified electronically.
[2018-02-16] MEDS ORDERED: SODIUM CHLORIDE 0.9% FLUSH 10 ML FLUSH IVF PRN (15:45)
[2018-02-16] MEDS ORDERED: SODIUM CHLOR 0.9% 1000 ML INJ 1,000 ML IV ONE ×3 (15:45→17:54)
[2018-02-16 16:16] LABS: AUTOMATED NEUTROPHIL # 5.8 TH/MM3 (1.8-7.7); BASOPHIL % 0.2 % (0.0-2.0); EOSINOPHIL % 0.4 % (0.0-4.0); HEMATOCRIT 42.6 % (39.0-51.0); HEMOGLOBIN 14.4 GM/DL (13.0-17.0); LYMPH % 16.9 % (9.0-44.0); LYMPHOCYTE # 1.3 TH/MM3 (1.0-4.8); MEAN CORPUSCULAR HGB CONC 33.7 % (32.0-36.0); MEAN PLATELET VOLUME 8.2 FL (7.0-11.0); MONO % 8.1 % (0.0-8.0); MONOCYTE # 0.6 TH/MM3 (0-0.9); NEUT % 74.4 % (16.0-70.0); PLATELET COUNT 207 TH/MM3 (150-450); RED BLOOD COUNT 4.49 MIL/MM3 (4.50-5.90); RED CELL DISTRIBUTION WIDTH 13.6 % (11.6-17.2); WHITE BLOOD COUNT 7.8 TH/MM3 (4.0-11.0)
[2018-02-16 16:23] VITALS: O2SAT 99
[2018-02-16 16:29] LABS: BILIRUBIN, URINE NEG (NEG); BLOOD, URINE NEG (NEG); GLUCOSE,URINE 1000 mg/dL (NEG); KETONE, URINE 10 mg/dL (NEG); NITRITE,URINE NEG (NEG); URINE COLOR LIGHT-YELLOW (YELLW/STRAW); URINE LEUKOCYTE ESTERASE NEG (NEG)
[2018-02-16 16:45] LABS: ALBUMIN 3.1 GM/DL (3.4-5.0); AST (GOT) 47 U/L (15-37); BICARBONATE 25.6 MEQ/L (21.0-32.0); BLOOD UREA NITROGEN 32 MG/DL (7-18); CALCIUM 8.5 MG/DL (8.5-10.1); CHLORIDE 98 MEQ/L (98-107); CREATININE 1.29 MG/DL (0.60-1.30); GLOMERULAR FILTRATION RATE 55 ML/MIN (>89); SODIUM (NA) 133 MEQ/L (136-145)
[2018-02-16 16:46] LABS: ALKALINE PHOSPHATASE 131 U/L (45-117); ALT (GPT) 110 U/L (12-78); TOTAL BILIRUBIN ADULT 0.7 MG/DL (0.2-1.0); TOTAL PROTEIN 7.6 GM/DL (6.4-8.2)
[2018-02-16 16:48] LABS: GLUCOSE,RANDOM 587 MG/DL (74-106)
[2018-02-16] MEDS ORDERED: AUGM875T3 PO (17:23)
[2018-02-16] MEDS ORDERED: INSULIN HUMAN REGULAR 1,000 UNITS/10 ML VIAL IV PUSH ONE (17:30)
[2018-02-16] MEDS ORDERED: METF500T PO (18:47)
--- NOTE | 2018-02-16 18:47 | PD ---
Data Data Last Documented VS Vital Signs Date Time Temp Pulse Resp B/P (MAP) Pulse Ox O2 Delivery O2 Flow Rate FiO2 02/16/18 16:23 99 02/16/18 14:12 98.2 66 16 159/69 (99) Orders Orders Chest, Single Ap (02/16/18 15:15) Albuterol-Ipratropium Neb (Duoneb Neb) (02/16/18 15:15) Urinalysis - C+S If Indicated (02/16/18 15:17) Blood Glucose (02/16/18 15:17) Complete Blood Count With Diff (02/16/18 15:36) Comprehensive Metabolic Panel (02/16/18 15:36) Beta Hydroxybutyrate (Acetone) (02/16/18 15:36) Ecg Monitoring (02/16/18 15:36) Iv Access Insert/Monitor (02/16/18 15:36) Oximetry (02/16/18 15:36) NPO (02/16/18 15:36) Sodium Chloride 0.9% Flush (Ns Flush) (02/16/18 15:45) Blood Gas Venous (Vbg) (02/16/18 15:36) Sodium Chlor 0.9% 1000 Ml Inj (Ns 1000 M (02/16/18 15:45) Blood Glucose (02/16/18 17:19) Blood Glucose (02/16/18 17:24) Blood Glucose (02/16/18 18:24) Sodium Chlor 0.9% 1000 Ml Inj (Ns 1000 M (02/16/18 17:24) Sodium Chlor 0.9% 1000 Ml Inj (Ns 1000 M (02/16/18 17:54) Insulin Human Regular Inj (Novolin R Inj (02/16/18 17:30) Ed Discharge Order (02/16/18 18:44) Labs Laboratory Tests Test 02/16/18 15:27 02/16/18 15:45 Blood Gas Puncture Site IV Blood Gas Patient Temperature 98.6 Venous Blood pH 7.39 Venous Blood Partial Pressure CO2 41 mmHg Venous Blood Partial Pressure O2 33 mmHg Venous Blood HCO3 24 mmol/L Venous Blood Oxygen Saturation 56 % Venous Blood Oxygen Content 11.5 Vol % Venous Blood Base Excess 0.0 mmol/L Oxygen Delivery Device RA Blood Gas Inspired Oxygen 21 % White Blood Count 7.8 TH/MM3 Red Blood Count 4.49 MIL/MM3 Hemoglobin 14.4 GM/DL Hematocrit 42.6 % Mean Corpuscular Volume 95.0 FL Mean Corpuscular Hemoglobin 32.0 PG Mean Corpuscular Hemoglobin Concent 33.7 % Red Cell Distribution Width 13.6 % Platelet Count 207 TH/MM3 Mean Platelet Volume 8.2 FL Neutrophils (%) (Auto) 74.4 % Lymphocytes (%) (Auto) 16.9 % Monocytes (%) (Auto) 8.1 % Eosinophils (%) (Auto) 0.4 % Basophils (%) (Auto) 0.2 % Neutrophils # (Auto) 5.8 TH/MM3 Lymphocytes # (Auto) 1.3 TH/MM3 Monocytes # (Auto) 0.6 TH/MM3 Eosinophils # (Auto) 0.0 TH/MM3 Basophils # (Auto) 0.0 TH/MM3 CBC Comment DIFF FINAL Differential Comment Urine Color LIGHT-YELLOW Urine Turbidity CLEAR Urine pH 6.0 Urine Specific Palmer 1.035 Urine Protein NEG mg/dL Urine Glucose (UA) 1000 mg/dL Urine Ketones 10 mg/dL Urine Occult Blood NEG Urine Nitrite NEG Urine Bilirubin NEG Urine Urobilinogen LESS THAN 2.0 MG/DL Urine Leukocyte Esterase NEG Urine WBC LESS THAN 1 /hpf Microscopic Urinalysis Comment CULT NOT INDICATED Blood Urea Nitrogen 32 MG/DL Creatinine 1.29 MG/DL Random Glucose 587 MG/DL Total Protein 7.6 GM/DL Albumin 3.1 GM/DL Calcium Level 8.5 MG/DL Alkaline Phosphatase 131 U/L Aspartate Amino Transf (AST/SGOT) 47 U/L Alanine Aminotransferase (ALT/SGPT) 110 U/L Total Bilirubin 0.7 MG/DL Sodium Level 133 MEQ/L Potassium Level 4.4 MEQ/L Chloride Level 98 MEQ/L Carbon Dioxide Level 25.6 MEQ/L Anion Gap 9 MEQ/L Estimat Glomerular Filtration Rate 55 ML/MIN B-Hydroxybutyrate 0.56 MMOL/L [facility] Medical Record Reviewed: Yes Supervised Visit with FRANTZ: Yes Narrative Course CBC & BMP Diagram 02/16/18 15:45 Total Protein 7.6, Albumin 3.1 L, Calcium Level 8.5, Alkaline Phosphatase 131 H , Aspartate Amino Transf (AST/SGOT) 47 H, Alanine Aminotransferase (ALT/SGPT) 110 H, Total Bilirubin 0.7 beta hydroxybutyrate 0.56 ph 7.39 The blood glucose decreased to 90 3:07 liters of fluid and 10 units insulin. The patient has a history of diabetes. Will initiate metformin here. This episode of hyperglycemia is likely related to prednisone. Diagnosis Primary Impression: Bronchitis Additional Impressions: Hyperglycemia Right otitis media Qualified Codes: H66.91 - Otitis media, unspecified, right ear Med/Other Pt SpecificInfo: Prescription(s) given Scripts Metformin (Metformin) 500 Mg Tab 500 MG PO BIDPC for Blood Sugar Management, #60 TAB 0 Refills Prov: Ede Gr MD 02/16/18 Amoxicillin-Clavulanate (Augmentin) 875-125 Mg Tab 1 TAB PO BID for Infection for 10 Days, #20 TAB 0 Refills Prov: Nichol Sandoval 02/16/18 Disposition: 01 DISCHARGE HOME Condition: Stable Ede Gr MD February 16, 2018 18:47
== END 2018-02-16 18:53 | disposition home or self-care (01) ==
LOC: NEPD 14:09
DX: J40 Bronchitis, not specified as acute or chronic (principal); E11.65 Type 2 diabetes mellitus with hyperglycemia; H66.91 Otitis media, unspecified, right ear; H92.02 Otalgia, left ear; H93.92 Unspecified disorder of left ear; Z91.14 Patient's other noncompliance with medication regimen; Z79.84 Long term (current) use of oral hypoglycemic drugs; Z87.19 Personal history of other diseases of the digestive system; Z87.448 Personal history of other diseases of urinary system
CPT/HCPCS: 71045; 80053; 81001; 82010; 82805; 85025; 94640; 94664; 96374; 99284; J1815; J7030